=== PATIENT | female | born 1970 | race Caucasian/White ===

== ENCOUNTER 2021-03-30 07:51 | Emergency (ER) | payer MEDICARE, OTHER ==
[~2021-03-30 07:51] MED LIST: TESSALON PERLE100 MG PO; VIBRAMYCIN100 MG PO
[2021-03-30 08:31] LABS: HEMOGLOBIN 14.8 gm/dl (12.3-15.3); RED BLOOD COUNT 5.34 M/UL (4.00-5.10); WHITE BLOOD COUNT 15.4 K/UL (4.5-11.0)
[2021-03-30 09:03] LABS: BUN/CREATININE RATIO 16 (0-10)
[2021-03-30] MEDS ORDERED: PREDNISONE 50 M50 MG PO (11:23)
[2021-03-30] MEDS ORDERED: K-DUR TAB 10 M10 MEQ PO (11:23)
[2021-03-30] MEDS ORDERED: IPRAT-ALBUT 0.5-3 ML INH (11:23)
== END 2021-03-30 12:45 | disposition home or self-care (01) ==
LOC: ER1 07:51
PROVIDERS: Student in an Organized Health Care Education/Training Program
DX: J44.1 Chronic obstructive pulmonary disease with (acute) exacerbation (principal); E87.6 Hypokalemia; Z87.891 Personal history of nicotine dependence; Z88.1 Allergy status to other antibiotic agents; Z20.822 Contact with and (suspected) exposure to COVID-19
CPT/HCPCS: 71045; 80053; 82550; 82553; 82803; 83874; 84484; 85025; 93005; 94664; 96365; 99284; J3475; J7070; U0002